=== PATIENT | female | born 1985 | race Caucasian/White ===

== ENCOUNTER 2016-09-05 20:19 | Emergency (ER) | payer OTHER ==
[~2016-09-05] VITALS: Ht 162.6 cm; Wt 69.4 kg
[2016-09-05] MEDS ORDERED: IV NORMAL SALINE 1000ML BAG 1,000 ML IV ONE (21:15)
[2016-09-05] MEDS ORDERED: DIPHENHYDRAMINE 50 MG/ML VIAL IVP ONE (21:30)
[2016-09-05] MEDS ORDERED: KETOROLAC TROMETHAMINE 30 MG/ML SYRINGE. IV ONE (21:30)
[2016-09-05] MEDS ORDERED: DEXAMETHASONE SOD PHOS 20 MG/5 ML VIAL. IV ONE (21:30)
[2016-09-05] MEDS ORDERED: METOCLOPRAMIDE HCL 10 MG/2 ML VIAL. IV ONE (21:30)
--- NOTE | 2016-09-05 21:40 | PHYS DOC ---
Past Medical History Past Medical History: Anxiety, Migraines, Seizure Past Surgical History: , Tonsillectomy Alcohol Use: Occasionally Drug Use: None Adult General Chief Complaint Chief Complaint: HEADACHE HPI HPI This is a 31-year-old female who presents with a severe migraine headache that she's had before. Patient has history of migraines secondary to atraumatic brain injury she had as a child. Patient states she was falling on a plane yesterday and the pressure changes caused her migraine symptoms before she was able to take her normal preventative medications. Patient does state she has photophobia and phonophobia. She has also nausea and vomiting. She denies any fever or chills. She denies any significant health problems. She does states she 's had a tubal ligation. Really she rates her pain a 9 out of 10 and her headache is somewhat generalized and typical for her usual migraine symptoms. Review of Systems Review of Systems Constitutional: Denies fever or chills [] Eyes: Denies change in visual acuity, redness, or eye pain [] HENT: Denies nasal congestion or sore throat [] Respiratory: Denies cough or shortness of breath [] Cardiovascular: No additional information not addressed in HPI [] GI: Denies abdominal pain, has nausea, has vomiting, denies bloody stools, denies diarrhea [] : Denies dysuria or hematuria [] Musculoskeletal: Denies back pain or joint pain [] Integument: Denies rash or skin lesions [] Neurologic: Has headache, denies focal weakness, denies sensory changes [] Endocrine: Denies polyuria or polydipsia [] Current Medications Current Medications Current Medications Medications (Trade) Dose Ordered Sig/Calvin Start Time Stop Time Status Last Admin Dose Admin Dexamethasone Sodium Phosphate 10 mg 10 mg 1X ONCE 09/05/16 21:30 09/05/16 21:31 DC 09/05/16 21:25 10 MG Diphenhydramine HCl (Benadryl) 25 mg 1X ONCE 09/05/16 21:30 09/05/16 21:31 DC 09/05/16 21:26 25 MG Ketorolac Tromethamine (Toradol) 30 mg 1X ONCE 09/05/16 21:30 09/05/16 21:31 DC 09/05/16 21:25 30 MG Lidocaine HCl (Lta Kit) 1 ml 1X ONCE 09/05/16 22:15 2/12/17 22:16 DC 09/05/16 22:23 1 ML Metoclopramide HCl (Reglan) 10 mg 1X ONCE 09/05/16 21:30 09/05/16 21:31 DC 09/05/16 21:32 10 MG Sodium Chloride (Iv Sodium Chloride 0.9% 1000ml Bag) 1,000 ml @ 1,000 mls/hr 1X ONCE 09/05/16 21:15 09/05/16 22:14 DC 09/05/16 21:24 1,000 MLS/HR Allergies Allergies Allergies Coded Allergies Type Severity Reaction Last Updated Verified cephalexin Allergy Intermediate Rash 09/05/16 Yes Physical Exam Physical Exam Constitutional: Well developed, well nourished, no acute distress, non-toxic appearance. [] HENT: Normocephalic, atraumatic, bilateral external ears normal, oropharynx moist, no oral exudates, nose normal. [] Eyes: PERRLA, EOMI, conjunctiva normal, no discharge. [] Neck: Normal range of motion, no tenderness, supple, no stridor. [] Cardiovascular:Heart rate regular rhythm, no murmur [] Lungs & Thorax: Bilateral breath sounds clear to auscultation [] Abdomen: Bowel sounds normal, soft, no tenderness, no masses, no pulsatile masses. [] Skin: Warm, dry, no erythema, no rash. [] Back: No tenderness, no CVA tenderness. [] Extremities: No tenderness, no cyanosis, no clubbing, ROM intact, no edema. [] Neurologic: Alert and oriented X 3, normal motor function, normal sensory function, no focal deficits noted. [] Psychologic: Affect normal, judgement normal, mood normal. [] Current Patient Data Vital Signs Vital Signs Date Time Temp Pulse Resp B/P Pulse Ox O2 Delivery O2 Flow Rate FiO2 09/05/16 23:20 87 20 97/53 97 Room Air 09/05/16 20:27 99.0 99.0 EKG EKG [] Radiology/Procedures Radiology/Procedures [] Course & Med Decision Making Course & Med Decision Making Pertinent Labs and Imaging studies reviewed. (See chart for details) Is a 31-year-old female with known migraine headache that is typical for her usual migraine symptoms. I will be giving her migraine cocktail consisting of IV Toradol, IV Benadryl, IV Reglan, IV Decadron, and IV normal saline bolus. I will reassess her and if she is improved and feeling comfortable she'll be discharged home with instructions to remain in a dark room for the next 24 hours and to rest. Upon my first reassessment, the patient feels slightly improved after migraine cocktail. Intranasal lidocaine was made and this did improve her symptoms slightly. She is comfortable now to go home and rest for the next 24 hours. Dragon Disclaimer Dragon Disclaimer This electronic medical record was generated, in whole or in part, using a voice recognition dictation system. Departure Departure Impression: Primary Impression: Migraine Disposition: 01 HOME, SELF-CARE Admitting Physician: Other Condition: STABLE Referrals: JOE WEISS MD (PCP) Patient Instructions: Migraine Headache, [id number] Additional Instructions: Please follow up with your primary doctor in the next 2-3 days for your migraine headache. Remain off work and avoid any strenuous activities for the next 24 hours. Return to the ER if you develop any worsening of your symptoms. DAVID HARVEY DO Sep 05, 2016 21:40
[2016-09-05] MEDS ORDERED: LIDOCAINE 4% KIT 4 ML SOLUTION. TP ONE (22:15)
[2016-09-05 23:20] VITALS: BP 97/53
== END 2016-09-05 23:38 | disposition home or self-care (01) ==
LOC: ER 20:19
DX: G43.909 Migraine, unspecified, not intractable, without status migrainosus (principal); F41.9 Anxiety disorder, unspecified; Z87.820 Personal history of traumatic brain injury
CPT/HCPCS: 96361; 96374; 96375; 99285; J1100; J1200; J1885; J2765; J7030

== ENCOUNTER 2017-07-08 16:58 | Emergency (ER) | payer OTHER ==
[~2017-07-08] VITALS: Ht 162.6 cm; Wt 65.8 kg
[2017-07-08 17:40] VITALS: BP 153/82
[2017-07-08] MEDS ORDERED: IV NORMAL SALINE 1000ML BAG 1,000 ML IV ONE (17:45)
[2017-07-08] MEDS ORDERED: KETOROLAC 30 MG/ML INJ. IV ONE (17:45)
[2017-07-08] MEDS ORDERED: METOCLOPRAMIDE HCL 10 MG/2 ML VIAL. IV ONE (17:45)
[2017-07-08] MEDS ORDERED: diphenhydrAMINE 50 MG/ML VIAL IVP ONE (17:45)
--- NOTE | 2017-07-08 17:45 | PHYS DOC ---
Past Medical History Past Medical History: Anxiety, Migraines, Seizure Past Surgical History: , Tonsillectomy Alcohol Use: Occasionally Drug Use: None Adult General Chief Complaint Chief Complaint: HEADACHE HPI HPI Patient is a 31 year old female with a migraines presents the ED complaining of headache times 12 hours. Patient states she has taken ibuprofen home with no relief. States the symptoms are the same as her previous migraines. Headache is on the left side of her head. Discussed pain as sharp. Rates the headache as 9 out of 10. States she has taken Toradol in the past and got relief. Associated symptoms include a few episodes of vomiting. Denies weakness, chest pain, abdominal pain, dizziness, shortness of breath, flu like symptoms, photophobia or fever. Review of Systems Review of Systems Constitutional: Denies fever or chills [] Eyes: Denies change in visual acuity, redness, or eye pain [] HENT: Denies nasal congestion or sore throat [] Respiratory: Denies cough or shortness of breath [] Cardiovascular: No additional information not addressed in HPI [] GI: Denies abdominal pain, nausea, vomiting, bloody stools or diarrhea [] : Denies dysuria or hematuria [] Musculoskeletal: Denies back pain or joint pain [] Integument: Denies rash or skin lesions [] Neurologic: Complains of headache. Denies focal weakness or sensory changes [] Endocrine: Denies polyuria or polydipsia [] All other systems were reviewed and found to be within normal limits, except as documented in this note. Current Medications Current Medications Current Medications Medications (Trade) Dose Ordered Sig/Calvin Start Time Stop Time Status Last Admin Dose Admin Diphenhydramine HCl (Benadryl) 25 mg 1X ONCE 07/08/17 17:45 07/08/17 17:46 DC 07/08/17 18:09 25 MG Ketorolac Tromethamine (Toradol) 30 mg 1X ONCE 07/08/17 17:45 07/08/17 17:46 DC 07/08/17 18:09 30 MG Metoclopramide HCl (Reglan Vial) 10 mg 1X ONCE 07/08/17 17:45 07/08/17 17:46 DC 07/08/17 18:10 10 MG Sodium Chloride 1,000 ml @ 1,000 mls/hr 1X ONCE 07/08/17 17:45 07/08/17 18:44 DC 07/08/17 18:11 1,000 MLS/HR Allergies Allergies Allergies Coded Allergies Type Severity Reaction Last Updated Verified cephalexin Allergy Intermediate Rash 09/05/16 Yes Physical Exam Physical Exam Constitutional: Well developed, well nourished, no acute distress, non-toxic appearance. [] HENT: Normocephalic, atraumatic, oropharynx moist Eyes: PERRLA, EOMI, conjunctiva normal, no discharge. [] Neck: Normal range of motion, no tenderness, supple, no stridor. [] Cardiovascular:Heart rate regular rhythm, no murmur [] Lungs & Thorax: Bilateral breath sounds clear to auscultation [] Abdomen: Bowel sounds normal, soft, no tenderness, no masses, no pulsatile masses. [] Skin: Warm, dry, no erythema, no rash. [] Back: No tenderness, no CVA tenderness. [] Extremities: No tenderness, no cyanosis, no clubbing, ROM intact, no edema. [] Neurologic: Alert and oriented X 3, normal motor function, normal sensory function, no focal deficits noted. [] Psychologic: Affect normal, judgement normal, mood normal. [] Current Patient Data Vital Signs Vital Signs Date Time Temp Pulse Resp B/P (MAP) Pulse Ox O2 Delivery O2 Flow Rate FiO2 07/08/17 17:40 97.9 100 16 100 Room Air 97.9 Lab Values Laboratory Tests Test 07/08/17 17:49 07/08/17 17:53 Urine Collection Type Unknown Urine Color Yellow Urine Clarity Cloudy Urine pH 8.0 Urine Specific [place] 1.025 Urine Protein Negative mg/dL (NEG-TRACE) Urine Glucose (UA) Negative mg/dL (NEG) Urine Ketones (Stick) 15 mg/dL (NEG) Urine Blood Large (NEG) Urine Nitrite Positive (NEG) Urine Bilirubin Negative (NEG) Urine Urobilinogen Dipstick 1.0 mg/dL (0.2 mg/dL) Urine Leukocyte Esterase Moderate (NEG) Urine RBC 0 /HPF (0-2) Urine WBC 5-10 /HPF (0-4) Urine Squamous Epithelial Cells Mod /LPF Urine Bacteria Mod /HPF (0-FEW) POC Urine HCG, Qualitative Hcg negative (Negative) EKG EKG [] Radiology/Procedures Radiology/Procedures [] Course & Med Decision Making Course & Med Decision Making Pertinent Labs and Imaging studies reviewed. (See chart for details) []Discussed lab findings with patient. Will treat for UTI outpatient. Patient's headache improved with medicine given in ED. Vitals stable, no acute distress. No focal neural deficits. Patient states she is feeling much better. States same symptoms as previous migraines. Discussed outpatient follow-up with a neurologist. Provided contact information/education. Discussed reasons to return to the ED. Patient understands and agrees with plan. Dragon Disclaimer Dragon Disclaimer This electronic medical record was generated, in whole or in part, using a voice recognition dictation system. Departure Departure Impression: Primary Impression: Migraine Additional Impression: Urinary tract infection Disposition: HOME, SELF-CARE Condition: IMPROVED Referrals: JOE WEISS MD (PCP) JHONY ESCALONA MD Patient Instructions: Migraine Headache, Urinary Tract Infection Scripts Nitrofurantoin Monohyd/M-Cryst (MACROBID 100 MG CAPSULE) 100 Mg Capsule 1 CAP PO BID, #14 CAP Prov: PETER VELAZQUEZ 07/08/17 Butalb/Acetaminophen/Caffeine ([id number]) 1 Each Tablet 1 EACH PO Q4-6HRS Y for HEADACHE, #10 TAB Prov: PETER VELAZQUEZ 07/08/17 Problem Qualifiers PETER VELAZQUEZ Jul 08, 2017 17:45
[2017-07-08 17:59] LABS: BILIRUBIN,URINE NEGATIVE (NEG); GLUCOSE,URINE NEGATIVE (NEG); NITRITE,URINE POSITIVE (NEG); PROTEIN,URINE NEGATIVE (NEG-TRACE)
[2017-07-08 18:12] LABS: BACTERIA,URINE MOD /HPF (0-FEW); RBC,URINE 0 /HPF (0-2); SQUAMOUS EPITHELIAL CELL,UR MOD /LPF
[2017-07-08] MEDS ORDERED: BUTA1TAB23 PO (19:15)
[2017-07-08] MEDS ORDERED: NITR100C62 PO (19:27)
[2017-07-10] MEDS ORDERED: NITR100C62 PO (15:51)
[2017-07-11] MEDS ORDERED: IBUP-1007 PO (09:56)
[2017-07-11] MEDS ORDERED: SUMA25TA3 PO (09:56)
[2017-07-11] MEDS ORDERED: ACET325T9 PO (09:56)
[2017-07-11] MEDS ORDERED: CIPR250T30 PO (09:56)
[2017-07-11] MEDS ORDERED: AMIT25TA PO (09:56)
== END 2017-07-08 19:38 | disposition home or self-care (01) ==
LOC: ER 16:58
DX: G43.909 Migraine, unspecified, not intractable, without status migrainosus (principal); N39.0 Urinary tract infection, site not specified; F41.9 Anxiety disorder, unspecified; Z88.1 Allergy status to other antibiotic agents
CPT/HCPCS: 81001; 81025; 96361; 96374; 96375; 99284; J1200; J1885; J2765; J7030